=== PATIENT | female | born 1955 | race Caucasian/White ===

== ENCOUNTER 2016-07-25 10:41 | Inpatient (IN) | payer MEDICAID ==
[~2016-07-25] VITALS: Ht 167.6 cm; Wt 154.0 kg
[~2016-07-25 10:41] MED LIST: APRISO0.375 GM PO; AUGMENTIN875 MG PO; BENTYL-DPS20 MG PO; BENTYL20 MG PO; CALCIUM 500+D1 EACH PO; CALCIUM 600 +1 EACH PO; CALCIUM PO; CARAFATE DPS1 GM PO; CARAFATE1 GM PO; CEPHALEXIN500 MG PO; CLARITIN10 M2 PO; COMBIVENT IH; COMBIVENT RESPIM4 G1 IH; COMBIVENT RESPIM4 GM IH; COPAXONE20 MG/ML SQ; COUMADIN10 MG PO; COUMADIN5 MG PO; COUMADIN7.5 MG PO; CUBICIN500 MG IM; FIORICET 50-301 EACH PO; FLEXERIL-DPS10 MG PO; FLONASE 0.05% D16 GM NS; FLOVENT DISKUS50 MCG NS; FLUTICASONE NS; FUROSEMIDE40 MG PO; GABAPENTIN300 MG PO; HYDROCODON-ACE1 EAC2 PO; HYDROCODONE/APAP PO; KCL PO; KEPPRA DPS500 MG PO; KEPPRA500 MG PO; KLOR-CON M2020 ME1 PO; KLOR-CON M2020 MEQ PO; LASIX DPS80 MG PO; LEXAPRO20 MG PO; LISINOPRIL10 MG PO; LOMOTIL-DPS1 TAB PO; MAALOX DPS30 ML PO; MICRO-K DPS10 MEQ PO; MIRALAX DPS17 GM PO; NEURONTIN DPS300 MG PO; NEURONTIN300 MG PO; NITROSTAT0.4 MG SL; NORCO 7.5-3251 EACH PO; OXY-CONTIN10 MG PO; OXY-CONTIN20 MG PO; OXYCONTIN10 MG PO; OXYCONTIN20 MG PO; PAXIL40 MG PO; PRILOSEC DPS20 MG PO; RESTASIS 0.05% OU; RESTASIS1 EACH OU; SINEQUAN DPS100 MG PO; SINEQUAN-DPS50 MG PO; SURFAK DPS240 MG PO; SURFAK240 MG PO; SYMBICORT 16010.2 GM IH; SYMBICORT160 MCG/6 IH; SYNTHROID DPS0.1 MG PO; SYNTHROID PO; SYNTHROID300 MCG PO; TYLENOL DPS325 MG PO; TYLENOL325 MG PO; VITAMIN A10000 UNI1 PO; VITAMIN A10000 UNIT PO; VITAMIN D-32000 UNIT PO; VITAMIN D32000 UNI1 PO; VITAMIN E400 UNIT PO; XANAX DPS0.25 MG PO; XANAX0.25 MG PO; ZANAFLEX4 MG PO; [UNRECOGNIZED DRUG - OTHER] IH; [UNRECOGNIZED DRUG - OTHER] PO
--- NOTE | 2016-07-26 04:11 | NUR ---
PATIENT CALL LIGHT WAS GOING OFF AT 0345 THIS RECORDER ENTERED PATIENT'S ROOM, AND PATIENT WAS ON COMMODE AND STATED "SORRY I KNOW I SHOULDN'T HAVE MOVED BY MYSELF, BUT I COULDN'T WAIT. I THINK I MIGHT HAVE DRIBBLED ON THE FLOOR AND SOMETHING CAME UNDONE AND I'M NOT SURE WHAT IT IS." THIS RECORDER NOTICED THAT WOUND VAC WAS DISCONTECTED FROM THE SUCTION TUBE TO THE PATIENT. HOSPITAL WAS CALLED FOR A REPLACEMENT SUCTION CATHETER AND WOUND VAC TAPE. WOUND VAC SUCTION TUBING REAPPLIED AND REINFORCED WITH WOUND VAC TAPE. PATIENT EDUCATED ON USING CALL LIGHT AND WAITING FOR SOMEONE TO HELP WITH TRANSFERS DUE TO PATIENT HAVING SO MUCH TUBING AROUND HER WITH HER WOUND VAC AND ICEMAN. PATIENT VOICED UNDERSTANDING.
--- NOTE | 2016-07-26 14:21 | NUR ---
PATIENT NOTE GEORGES HAS BEEN ADMITTED TO [facility] FROM [facility] IN [place] WHERE SHE UNDERWENT RIGHT KNEE REVISION SURGERY. SHE WAS PATIENT THERE FROM 07/19 - 07/25/16. AB IS HERE UNDER HER MEDICAID [facility] PLAN WHO APPROVED 10 DAYS WITH A REVIEW. AB IS A ALERT, ORIENTED AND VERY PLEASANT 61 YEAR OLD WHO LIVES HERE IN [place] WITH HER FRIEND, ROBERTA. HER GOAL/PLAN IS TO RETURN TO HOME WHEN SHE IS ABLE TO CARE FOR HERSELF. SOCIAL WORK TO FOLLOW AND ASSIST WITH D/C PLANNING AND WITH CONCERNS OR NEEDS THAT MAY ARISE.
--- NOTE | 2016-07-26 17:14 | NUR ---
07/26/16 1200PM RETURN FROM [facility] WAS STANDING HER UP TO TRANFER HER TO CHAIR, WAS UNSTEADY WENT TO LOWER HER BACK TO W/C AND W/C ROLLED BACK.THEN LOWER HER TO THE FLOOR WENT FOR HELP. W/C WAS LOCKED BUT LOCKS DID NOT HOLD WAS TAKEN TO MAINTENANCE GAIT BELT WAS ON PATIENT.
--- NOTE | 2016-07-27 14:11 | NUR ---
pt is running a low grade temp of 99.3. Encouraged her to cough and deep breathe and use the IS. she was using the IS as I am charting this note.
--- NOTE | 2016-07-29 04:38 | NUR ---
PT AWAKE AND TOOK HER SELF TO BATHROOM, REQUESTS PAIN MED AND ALL OF EARLY AM MEDS AT THIS TIME SO NOT TO BE AWAKENED IF SHE IS SLEEPING AT O530.
--- NOTE | 2016-08-08 10:36 | NUR ---
INTERVIEW FOR MDS 3.0-PT. IS ALERT AND ORIENTED. COGNTION IS INTACT. PT. KNOWS THE YEAR, MONTH AND DAY OF THE WEEK. PT. CAN REPEAT AND RECALL ALL THREE WORDS WITHOUT CUES. PT. STATES PRIOR TO COMING INTO SNU OR ACUTE CARE, SHE IS PRETTY INDEPENDENT AT HOME, HAS NO DRIVEN FOR SEVERAL MONTHS DUE TO HER KNEE, SHE HAS SOMEONE CLEAN HER HOME WEEKLY, OTHERWISE SHE COOKDS FOR HERSELF AND IS SELF SUFFICENT IN HER DAILY ADLS AND MOBILITY NEEDS. PT. STATES OCCASSIONALLY SHE GETS DEPRESSED, ESPECIALLY RIGHT AFTER SHE HAD HER KNEE DONE AND WAS NOT ABLE TO DO WHAT SHE WANTED TO DO, NOW SHE IS DOING FINE AND HAS JUST OCCASSIONAL DEPRESSION. STATES HER APPETITE IS GOOD AND SHE SLEEPS PRETTY WELL, BUT SHE NEEDS TO GET UP TO THE BATHROOM ABOUT EVERY 2HRS. ITS IMPORTANT TO HER TO CHOOSE HER CLOTHING FOR THE DAY, TO SHOWER, TO USE THE PHONE IN PRIVATE AND CHOOSE HER BEDTIME. DOES NOT NEED TO LOCK UP HER PERSONEL ITEMS AND OCCASSIONAL INBETWEEN SNACKS ARE OK. LIKES TO READ AND READS THE NEWSPAPER DAILY, LIKES TO KEEP UP WITH THE NEWS AND LISTENING TO MUSIC. LOVES PETS, HAS A TOY POODLE NAMED TEJAL, PREFERS BEING ALONE THEN IN GROUPS, LIKES TO GET OUTSIDE FOR FRESH AIR. GOAL IS TO RETURN HOME, TO GET THIS RT KNEE HEALED SO SHE CAN HAVE THE OTHER ONE DONE. FEELS SHE HAS MADE GOOD PROGRESS TOWARDS GOING HOME. STATES HER PAIN HAS BEEN HIGH A 7, BRINGS HER TO TEARS AND MAKES IT DIFFICULT TO SLEEP WELL JUST DO MUCH AT ALL. STATES THE PAIN IN MOSTLY IN HER RT ANKLE DUE TO THE EDEMA. BORN IN [place], RAISED IN [place]. WAS TO A CHEATING WHO HER SISTER, SHE GOT AWAY FROM THAT. HAS 3 CHILDREN, 13 GRAND CHILDREN AND 2 GREAT GRAND CHILDREN WITH ONE ON THE WAY. PT. STATES HER CARE HAS GONE WELL AND SHE STATES THE FOOD COULD STAND IMPROVEMENT BUT THE COFFEE IS GREAT. THANKED PT. FOR NICE VISIT AND INTERVIEW. WISHED HER A GOOD DAY.
--- NOTE | 2016-08-10 11:33 | NUR ---
PATIENT NOTE AB HAS BEEN D/C TO HER HOME IN [place], HER FRIEND ROBERTA TRANSPORTED HER HOME. AB ASK TO HAVE [facility] SINCE SHE HAS HAD THEM IN THE PAST. REFERRAL HAS BEEN MADE AND D/C ORDERS HAVE BEEN FAXED TO THEM. HHC SERVICES WILL BEGIN THIS AFTERNOON OR TOMORROW. AB HAS HER OWN WALKER AND SHE ASK THAT HER MEDS BE CALLED INTO [facility]. AB REMAINS ALERT AND ORIENTED. THE WOUND VAC WAS D/C AND SUTURES REMOVED AT HER 08/07 APT. SHE DID NOT VOICE ANY CONCERNS WITH HER CARE OR STAY.
[2016-08-11] MEDS ORDERED: RESTASIS1 EACH OU (12:44)
[2016-08-11] MEDS ORDERED: LASIX DPS40 MG PO (12:47)
[2016-08-11] MEDS ORDERED: SENOKOT S1 TAB PO (12:50)
[2016-08-11] MEDS ORDERED: BIAFINE45 GM TP (12:50)
[2016-08-11] MEDS ORDERED: VALIUM-DPS5 MG PO (12:51)
[2016-08-11] MEDS ORDERED: MILK OF MAGNESI10 ML PO (12:52)
[2016-08-11] MEDS ORDERED: MIRALAX PACKET17 GM PO (12:52)
[2016-08-11] MEDS ORDERED: TEARS NATURAL D15 ML OU (12:53)
[2016-08-11] MEDS ORDERED: DULCOLAX-DPS10 MG PR (12:53)
[2016-08-11] MEDS ORDERED: MYRBETRIQ25 MG PO (12:54)
== END 2016-08-10 10:20 | disposition home health service (06) | DRG 560 ==
LOC: SNU 10:41
PROVIDERS: ADMIT Internal Medicine
PROC: F07Z9ZZ Gait Training/Functional Ambulation Treatment (ICD-10-PCS; principal; 2016-07-25)
PROC: F08Z4ZZ Home Management Treatment (ICD-10-PCS; principal; 2016-07-25)
DX: Z47.1 Aftercare following joint replacement surgery (principal); Z68.43 Body mass index [BMI] 50.0-59.9, adult; I10 Essential (primary) hypertension; Z96.651 Presence of right artificial knee joint; G40.309 Generalized idiopathic epilepsy and epileptic syndromes, not intractable, without status epilepticus; J44.9 Chronic obstructive pulmonary disease, unspecified; F41.9 Anxiety disorder, unspecified; F32.9 Major depressive disorder, single episode, unspecified; E66.01 Morbid (severe) obesity due to excess calories; D64.9 Anemia, unspecified; K21.9 Gastro-esophageal reflux disease without esophagitis; G47.33 Obstructive sleep apnea (adult) (pediatric); G89.4 Chronic pain syndrome; E78.2 Mixed hyperlipidemia; E03.9 Hypothyroidism, unspecified; Z85.850 Personal history of malignant neoplasm of thyroid; Z86.718 Personal history of other venous thrombosis and embolism; Z86.14 Personal history of Methicillin resistant Staphylococcus aureus infection; Z79.01 Long term (current) use of anticoagulants